=== PATIENT | female | born 1985 | race Caucasian/White ===

== ENCOUNTER 2022-03-19 17:55 | Emergency (ER) | payer OTHER, SELFPAY ==
[2022-03-19 18:31] VITALS: BP 128/87; PULSE 93; RESP 16; TEMP 37.4; O2SAT 100
--- NOTE | 2022-03-19 18:33 | ED.SKABFB ---
HPI - Skin/Abscess/Foreign Bdy General Chief complaint: Skin/Abscess/Foreign Body Stated complaint: HIVES Time Seen by Provider: 03/19/22 17:59 Source: patient Mode of arrival: ambulatory Limitations: no limitations History of Present Illness HPI narrative: Orlin is a 36-year-old female patient presenting to the clinic today with complaints of hives. She reports that she has had these hives for over 1 week. Was prescribed a Medrol Dosepak through a tele health visit and reports that she took her last dose today in the highs seem to be getting worse. She reports that they are very itchy in all over her body. States that she started using a new fabric softener last week and thinks that that is the cause of the hives. Related Data Allergies Allergy/AdvReac Type Severity Reaction Status Date / Time Penicillins Allergy Unknown Unknown Unverified 03/19/22 18:30 Review of Systems Review of Systems: Pertinent positives per HPI. Patient denies any fever, chills, headache, visual changes, dizziness, cough, runny nose, sore throat, shortness of breath, chest pain, palpitations, nausea, vomiting, diarrhea, constipation, abdominal pain, or any urinary issues. PMFSH Comments At the time of my signature, I reviewed and agree with the nursing past medical, surgical, social, and family history. There is no relevant family history pertinent to the patient complaint. Exam Narrative: General: Well-developed, well nourished, in no apparent distress Head: Normocephalic, atraumatic. Cardio: Regular rate and rhythm, s1 and s2 normal, no murmur appreciated. Resp: Clear to auscultation bilaterally, no rhonchi, rales, wheezing or rubs. Integumentary: [place], warm, and dry, red, raised, itchy, circular wheels/hives to abdomen, bilateral arms and legs, neck, chest, back, torso, intact without lesion. Course Course Emergency Course: Portions of this record may have been created with voice recognition software. Level of Care: Express Care Visit Vital Signs Vital signs: Vital Signs Temperature 37.4 C 03/19/22 18:31 Pulse Rate 93 12 18:31 Respiratory Rate 16 03/19/22 18:31 Blood Pressure 128/87 03/19/22 18:31 Pulse Oximetry 100 03/19/22 18:31 Oxygen Delivery Room Air 03/19/22 18:31 Temperature 37.4 C 03/19/22 18:31 Pulse Rate 93 03/19/22 18:31 Respiratory Rate 16 03/19/22 18:31 Blood Pressure 128/87 03/19/22 18:31 Pulse Oximetry 100 03/19/22 18:31 Oxygen Delivery Room Air 03/19/22 18:31 Vital signs reviewed MDM - Skin/Abscess/Foreign Bdy MDM Narrative Medical decision making narrative: At the time of visit patient is resting comfortably at the exam table. Shot of dexamethasone 10 mg IM given in the clinic today. Prescription for tapered dose of prednisone as well as Pepcid sent to the pharmacy. Supportive measures were discussed with the patient she voiced understanding of discharge instructions and agrees to treatment plan. Differential Diagnosis Differential diagnosis: Likely viral exanthem, urticaria, cellulitis, eczema, insect bites and contact dermatitis Discharge Plan Discharge Clinical Impression: Acute urticaria Patient Disposition: Home, Self-Care Condition: Stable Instructions: Antibiotic Form, Urticaria (ED) Additional Instructions: Dexamethasone 10 mg IM given in the clinic today Take prednisone taper dose as prescribed Take Pepcid 40 mg daily Take an [id number] antihistamine such as Zyrtec or Claritin daily May continue Benadryl 25-50 mg every 6 hours as needed for itching Avoid hot showers Avoid scratching Follow-up with your PCP in 1 week if symptoms persist or sooner if they worsen Go to the emergency room if you develop any shortness of breath, chest pain, lethargy, dizziness, visual changes, headache, difficulty swallowing, or any worsening of symptoms Prescriptions: New famotidine [Pepcid] 40 mg tablet 40 mg PO DAILY 10 Days Qt
== END 2022-03-19 19:02 | disposition home or self-care (01) ==
PROVIDERS: Emergency Provider Nurse Practitioner Family
DX: L50.9 Urticaria, unspecified (principal)
CPT/HCPCS: 96372; 99203; G0463; J1100